=== PATIENT | male | born 1965 | race Caucasian/White ===

== ENCOUNTER 2020-11-27 08:59 | Outpatient (RCR) | payer OTHER ==
[2015-09-07 17:53] VITALS: BP 147/102
[~2020-11-27 08:59] MED LIST: ALKA SELTZER PL PO; ALLEGRA D 12 HO1 TER PO; CALCIUM WITH V1 EAC1 PO; FISH OIL1 IU PO; FLAX SEED OIL1000 MG PO; LISINOPRIL20 MG PO; LOW DOSE ASPIRI81 M1 PO; MEDROL 4MG DOSPA4 MG PO; VITAMIN E100 UNI1; XOPENEX1.25 MG/3 IH; ZITHROMAX Z PA250 MG PO
== END 2020-12-24 16:30 | disposition home or self-care (01) ==
LOC: PT 08:59
DX: Z98.890 Other specified postprocedural states (principal)

== ENCOUNTER 2021-02-22 10:30 | Outpatient (RCR) | payer OTHER ==
[2015-09-07 17:53] VITALS: BP 147/102
== END 2021-05-16 | disposition home or self-care (01) ==
LOC: PT
DX: M17.0 Bilateral primary osteoarthritis of knee (principal)